=== PATIENT | male | born 1975 | race Caucasian/White ===

== ENCOUNTER 2023-03-26 12:36 | Inpatient (IN) | payer BC ==
[~2023-03-26] VITALS: Ht 177.8 cm; Wt 112.8 kg
[~2023-03-26 12:36] MED LIST: FURO1TAB33 PO; SPIR25TA PO
[2023-03-26 13:21] LABS: Basophils # (auto) 0.1 10 ^3/uL (0-0.2); Basophils % (auto) 0.6 % (0.0-2.0); Eosinophils # (auto) 0.1 10 ^3/uL (0-0.8); Eosinophils % (auto) 0.9 % (0.0-7.0); Hematocrit 43.8 % (41.0-53.0); Hemoglobin 14.3 g/dL (13.5-17.5); Lymphocytes % (auto) 8.9 % (10.0-50.0); Mean Corpuscular Hemoglobin 29.8 pg (28.0-32.0); Mean Corpuscular Hgb Conc. 32.7 g/dL (32.0-36.0); Mean Corpuscular Volume 91.1 fL (80.0-100.0); Monocytes # (auto) 0.5 10 ^3/uL (0-1.3); Monocytes % (auto) 4.6 % (0.0-12.0); Neutrophils # (auto) 9.7 10 ^3/uL (1.6-8.6); Red Blood Cells 4.81 10^6/uL (4.5-5.90); White Blood Cell 11.4 10^3/uL (4.4-10.8)
[2023-03-26 13:28] LABS: Red Cell Distribution Width 22.6 % (11.8-14.3)
[2023-03-26 13:34] LABS: Albumin 3.1 g/dL (3.4-5.0); BUN/Creatinine Ratio 14.8 (10.0-20.0); Calcium 8.8 mg/dL (8.5-10.1); Potassium 3.4 mmol/L (3.5-5.1)
[2023-03-26 13:57] LABS: Bilirubin, Total 0.8 mg/dL (0.2-1.0); Total Protein 7.5 g/dL (6.4-8.2)
[2023-03-26 14:03] LABS: Lipase 3934 U/L (73-393)
[2023-03-26 14:12] LABS: Blood Alcohol < 3.0 mg/dL (<10)
[2023-03-26] MEDS ORDERED: metroNIDAZOLE 500MG/100ML 100 ML IV ONE (14:30)
[2023-03-26] MEDS ORDERED: MORPHINE SULFATE 4 MG/ML SYR/VIAL IV ONE ×2 (14:30→19:45)
[2023-03-26] MEDS ORDERED: cefTRIAXone 1GM/50ML D5W 50 ML IV ONE (14:30)
[2023-03-26] MEDS ORDERED: ONDANSETRON HCL 4 MG/2 ML VIAL IV ONE ×2 (14:30→19:45)
[2023-03-26] MEDS ORDERED: SODIUM CHLORIDE 0.9% 1,000 ML IV ONE (14:30)
[2023-03-26 16:14] LABS: Lactic Acid w/Reflex 2.2 mmol/L (0.4-2.0)
[2023-03-26 18:58] LABS: Urine Bacteria NONE SEEN /hpf (None Seen); Urine Blood Negative /uL (Negative); Urine Mucus FEW (None Seen); Urine Specific Gravity 1.033 (1.001-1.035); Urine WBC 1 /hpf (0 - 3)
[2023-03-26] MEDS ORDERED: PANTOPRAZOLE 40 MG/10 ML VIAL INJ IV ONE (21:00)
[2023-03-26] MEDS ORDERED: ACETAMINOPHEN 325 MG TAB PO PRN (21:00)
[2023-03-26] MEDS ORDERED: HYDROcodone-ACET 5/325MG TAB PO PRN (21:00)
[2023-03-26] MEDS: SODIUM CHLORIDE 0.9% 1,000 ML IV SCH (22:04)
[2023-03-26] MEDS: ONDANSETRON HCL 4 MG/2 ML VIAL IV PRN (22:10)
[2023-03-26] MEDS: MORPHINE SULFATE INJ 2 MG/ml SYRG IV PRN (23:59)
[2023-03-27] MEDS: ONDANSETRON HCL 4 MG/2 ML VIAL IV PRN ×5 (03:31→21:48)
[2023-03-27] MEDS: MORPHINE SULFATE INJ 2 MG/ml SYRG IV PRN ×5 (04:18→21:52)
[2023-03-27] MEDS ORDERED: ATEN25TA PO (04:35)
[2023-03-27] MEDS ORDERED: PANT40TA2 PO (04:37)
[2023-03-27] MEDS ORDERED: DIVA500T3 PO (04:39)
[2023-03-27] MEDS ORDERED: DIVA250T4 PO (04:39)
[2023-03-27] MEDS ORDERED: SERT100T PO (04:40)
[2023-03-27 05:00] VITALS: BP 150/97
[2023-03-27 06:12] LABS: Chloride 102 mmol/L (98-107); Potassium 3.4 mmol/L (3.5-5.1); Sodium 136 mmol/L (136-145)
[2023-03-27 06:21] LABS: Albumin 2.6 g/dL (3.4-5.0); Anion Gap 8 (5-15); BUN/Creatinine Ratio 15.1 (10.0-20.0); Blood Urea Nitrogen 11 mg/dL (7-18); Calcium 8.3 mg/dL (8.5-10.1); Carbon Dioxide 26 mmol/L (21-32); GFR African American 149 mL/min; GFR Non-African American 123 mL/min; Glucose 100 mg/dL (74-106)
[2023-03-27 06:37] LABS: Alanine Aminotransferase 76 U/L (16-61); Alkaline Phosphatase 100 U/L (45-117); Aspartate Aminotransferase 78 U/L (15-37); Bilirubin, Total 0.8 mg/dL (0.2-1.0); Total Protein 6.5 g/dL (6.4-8.2)
[2023-03-27 06:57] LABS: Basophils # (auto) 0 10 ^3/uL (0-0.2); Basophils % (auto) 0.3 % (0.0-2.0); Eosinophils # (auto) 0.1 10 ^3/uL (0-0.8); Hematocrit 40.3 % (41.0-53.0); Hemoglobin 13.1 g/dL (13.5-17.5); Lymphocytes # (auto) 0.7 10 ^3/uL (0.4-5.4); Mean Corpuscular Hemoglobin 30.9 pg (28.0-32.0); Mean Corpuscular Hgb Conc. 32.5 g/dL (32.0-36.0); Mean Corpuscular Volume 95.2 fL (80.0-100.0); Monocytes # (auto) 0.6 10 ^3/uL (0-1.3); Monocytes % (auto) 7.7 % (0.0-12.0); Neutrophils # (auto) 6.2 10 ^3/uL (1.6-8.6); Nucleated Red Blood Cells % 0.1 %; Red Blood Cells 4.24 10^6/uL (4.5-5.90); White Blood Cell 7.7 10^3/uL (4.4-10.8)
[2023-03-27 07:16] LABS: Red Cell Distribution Width 22.2 % (11.8-14.3)
[2023-03-27] MEDS: cefTRIAXone 1GM/50ML D5W 50 ML IV SCH (08:41)
[2023-03-27] MEDS: SODIUM CHLORIDE 0.9% 1,000 ML IV SCH ×2 (08:45→20:32)
[2023-03-27] MEDS: ATENOLOL 50 MG TAB PO SCH (08:46)
[2023-03-27] MEDS: SERTRALINE HCL 50 MG TAB PO SCH (08:46)
[2023-03-27 09:00] VITALS: BP 145/96
[2023-03-27] MEDS ORDERED: PANTOPRAZOLE 40 MG/10 ML VIAL INJ IV SCH (10:00)
[2023-03-27 11:43] LABS: Amylase 243 U/L (25-115)
[2023-03-27 12:35] LABS: Lipase 3047 U/L (73-393)
[2023-03-27 13:00] VITALS: BP 146/95
[2023-03-27 17:00] VITALS: BP 133/87
[2023-03-27 20:00] VITALS: BP 136/67
[2023-03-27 23:30] VITALS: BP 144/75
[2023-03-28] MEDS: ONDANSETRON HCL 4 MG/2 ML VIAL IV PRN ×4 (02:04→16:44)
[2023-03-28] MEDS: MORPHINE SULFATE INJ 2 MG/ml SYRG IV PRN ×4 (02:17→16:45)
[2023-03-28 04:27] VITALS: BP 106/67
[2023-03-28 06:49] LABS: Basophils # (auto) 0 10 ^3/uL (0-0.2); Basophils % (auto) 0.4 % (0.0-2.0); Eosinophils # (auto) 0.3 10 ^3/uL (0-0.8); Eosinophils % (auto) 4.3 % (0.0-7.0); Hematocrit 34.1 % (41.0-53.0); Hemoglobin 11.3 g/dL (13.5-17.5); Lymphocytes # (auto) 0.7 10 ^3/uL (0.4-5.4); Mean Corpuscular Hemoglobin 30.6 pg (28.0-32.0); Mean Corpuscular Hgb Conc. 33.3 g/dL (32.0-36.0); Mean Corpuscular Volume 91.8 fL (80.0-100.0); Monocytes # (auto) 0.4 10 ^3/uL (0-1.3); Monocytes % (auto) 5.7 % (0.0-12.0); Neutrophils # (auto) 4.8 10 ^3/uL (1.6-8.6); Neutrophils % (auto) 77.6 % (37.0-80.0); Nucleated Red Blood Cells % 0.1 %; Red Blood Cells 3.71 10^6/uL (4.5-5.90); Red Cell Distribution Width 21.7 % (11.8-14.3); White Blood Cell 6.2 10^3/uL (4.4-10.8)
[2023-03-28 07:13] LABS: Albumin 2.3 g/dL (3.4-5.0); Calcium 8.4 mg/dL (8.5-10.1); Potassium 3.4 mmol/L (3.5-5.1)
[2023-03-28 07:19] LABS: BUN/Creatinine Ratio 11.6 (10.0-20.0); Bilirubin, Total 0.9 mg/dL (0.2-1.0); Total Protein 6.1 g/dL (6.4-8.2)
[2023-03-28] MEDS: SODIUM CHLORIDE 0.9% 1,000 ML IV SCH (08:34)
[2023-03-28 08:40] VITALS: BP 120/83
[2023-03-28] MEDS: cefTRIAXone 1GM/50ML D5W 50 ML IV SCH (09:19)
[2023-03-28] MEDS: ATENOLOL 50 MG TAB PO SCH (10:23)
[2023-03-28] MEDS: SERTRALINE HCL 50 MG TAB PO SCH (10:23)
[2023-03-28 13:00] VITALS: BP 109/78
[2023-03-28 15:26] VITALS: BP 120/83
[2023-03-28 17:14] VITALS: BP 118/86
== END 2023-03-28 19:05 | disposition home or self-care (01) | DRG 440 ==
LOC: ER 12:36 → OVERFLOW 20:53 → WEST WING 03-27 00:58
PROVIDERS: ADMIT Nurse Practitioner; ATTEND Internal Medicine
DX: K85.20 Alcohol induced acute pancreatitis without necrosis or infection (principal); K86.1 Other chronic pancreatitis; K76.0 Fatty (change of) liver, not elsewhere classified; I10 Essential (primary) hypertension; K80.20 Calculus of gallbladder without cholecystitis without obstruction; F10.10 Alcohol abuse, uncomplicated; F32.A Depression, unspecified
CPT/HCPCS: 36415; 74176; 76705; 78226; 80053; 80320; 81001; 82150; 83605; 83690; 85025; 87040; 96365; 96367; 96375; 96376; C9113; G0378; J0696; J2405; J3490

== ENCOUNTER 2023-03-30 15:11 | Inpatient (IN) | payer BC ==
[~2023-03-30] VITALS: Ht 177.8 cm; Wt 115.0 kg
[~2023-03-30 15:11] MED LIST changes: +ATEN25TA PO; +DIVA250T4 PO; +DIVA500T3 PO; +PANT40TA2 PO; +SERT100T PO
[2023-03-30 15:41] LABS: Basophils # (auto) 0.1 10 ^3/uL (0-0.2); Eosinophils # (auto) 0.2 10 ^3/uL (0-0.8); Eosinophils % (auto) 2.8 % (0.0-7.0); Hematocrit 39.7 % (41.0-53.0); Hemoglobin 13.2 g/dL (13.5-17.5); Lymphocytes # (auto) 0.9 10 ^3/uL (0.4-5.4); Lymphocytes % (auto) 11.5 % (10.0-50.0); Mean Corpuscular Hemoglobin 30.7 pg (28.0-32.0); Mean Corpuscular Hgb Conc. 33.2 g/dL (32.0-36.0); Mean Corpuscular Volume 92.5 fL (80.0-100.0); Monocytes # (auto) 0.6 10 ^3/uL (0-1.3); Monocytes % (auto) 7.5 % (0.0-12.0); Neutrophils # (auto) 6.2 10 ^3/uL (1.6-8.6); Neutrophils % (auto) 77.2 % (37.0-80.0); Nucleated Red Blood Cells % 0.1 %; Red Blood Cells 4.29 10^6/uL (4.5-5.90); Red Cell Distribution Width 21.5 % (11.8-14.3)
[2023-03-30 16:02] LABS: Albumin 2.9 g/dL (3.4-5.0); Potassium 3.2 mmol/L (3.5-5.1)
[2023-03-30 16:16] LABS: BUN/Creatinine Ratio 15.4 (10.0-20.0); Bilirubin, Total 0.6 mg/dL (0.2-1.0); Total Protein 7.7 g/dL (6.4-8.2)
[2023-03-30] MEDS ORDERED: TEMAZEPAM 15 MG CAP PO PRN (17:45)
[2023-03-30] MEDS ORDERED: DOCUSATE SOD 100 MG CAP PO PRN (17:45)
[2023-03-30] MEDS ORDERED: ACETAMINOPHEN 325 MG TAB PO PRN (17:45)
[2023-03-30] MEDS ORDERED: HYDROcodone-ACET 5/325MG TAB PO PRN (17:45)
[2023-03-30] MEDS: SODIUM CHLORIDE 0.9% 1,000 ML IV SCH (20:20)
[2023-03-31] MEDS: MORPHINE SULFATE INJ 2 MG/ml SYRG IV PRN ×6 (00:59→22:39)
[2023-03-31] MEDS: SODIUM CHLORIDE 0.9% 1,000 ML IV SCH ×3 (02:05→18:19)
[2023-03-31] MEDS: ONDANSETRON HCL 4 MG/2 ML VIAL IV PRN ×4 (05:55→18:19)
[2023-03-31 07:04] LABS: Albumin 2.4 g/dL (3.4-5.0)
[2023-03-31 07:09] LABS: BUN/Creatinine Ratio 16.7 (10.0-20.0); Bilirubin, Total 0.6 mg/dL (0.2-1.0); Total Protein 5.8 g/dL (6.4-8.2)
[2023-03-31 09:10] VITALS: BP 137/85
[2023-03-31] MEDS: ENOXAPARIN SOD 40 MG/0.4 ML SYRINGE SC SCH (10:09)
[2023-03-31 13:00] VITALS: BP 131/88
[2023-03-31 13:49] LABS: Amylase 73 U/L (25-115); Lipase 971 U/L (73-393)
[2023-03-31] MEDS ORDERED: POTASSIUM CHL 20 Meq TABLET PO ONE (15:45)
[2023-03-31 17:00] VITALS: BP 133/88
[2023-03-31] MEDS ORDERED: HYDR1TAB97 PO (17:41)
[2023-03-31 22:00] VITALS: BP 134/90
[2023-04-01] MEDS: ONDANSETRON HCL 4 MG/2 ML VIAL IV PRN ×4 (03:54→17:23)
[2023-04-01] MEDS: MORPHINE SULFATE INJ 2 MG/ml SYRG IV PRN ×5 (03:55→21:56)
[2023-04-01] MEDS: SODIUM CHLORIDE 0.9% 1,000 ML IV SCH ×4 (04:00→20:58)
[2023-04-01 05:00] VITALS: BP 140/89
[2023-04-01 09:00] VITALS: BP 129/75
[2023-04-01] MEDS: ENOXAPARIN SOD 40 MG/0.4 ML SYRINGE SC SCH (09:05)
[2023-04-01 13:00] VITALS: BP 109/64
[2023-04-01 17:00] VITALS: BP 130/76
[2023-04-01 22:00] VITALS: BP 137/88
[2023-04-02] MEDS: ONDANSETRON HCL 4 MG/2 ML VIAL IV PRN (02:13)
[2023-04-02] MEDS: MORPHINE SULFATE INJ 2 MG/ml SYRG IV PRN ×2 (02:14→06:34)
[2023-04-02 05:00] VITALS: BP 128/90
[2023-04-02] MEDS: SODIUM CHLORIDE 0.9% 1,000 ML IV SCH ×2 (06:39→12:25)
[2023-04-02 09:00] VITALS: BP 138/85
[2023-04-02] MEDS: ENOXAPARIN SOD 40 MG/0.4 ML SYRINGE SC SCH (09:43)
[2023-04-02 13:00] VITALS: BP 110/69
[2023-04-02] MEDS ORDERED: PANC3600 OR (15:40)
[2023-04-02 16:04] VITALS: BP 110/69
== END 2023-04-02 17:04 | disposition home or self-care (01) | DRG 439 ==
LOC: ER 15:11 → OVERFLOW 17:45 → WEST WING 03-31 08:45
PROVIDERS: ADMIT Internal Medicine; ATTEND Internal Medicine
DX: K85.90 Acute pancreatitis without necrosis or infection, unspecified (principal); K86.3 Pseudocyst of pancreas; I10 Essential (primary) hypertension; F32.A Depression, unspecified; F10.20 Alcohol dependence, uncomplicated
CPT/HCPCS: 36415; 74176; 80053; 80320; 82150; 83690; 85025; 87081; 93005; G0378; J2405

== ENCOUNTER 2024-01-11 10:36 | Emergency (ER) | payer BC, OTHER ==
[~2024-01-11] VITALS: Ht 177.8 cm; Wt 105.7 kg
[~2024-01-11 10:36] MED LIST changes: +DIVA-139 PO; +DIVA-91 PO; -DIVA250T4 PO; -DIVA500T3 PO; +HYDR1TAB97 PO; +PANC3600 OR
[2024-01-11 11:25] LABS: Basophils # (auto) 0 10 ^3/uL (0-0.2); Basophils % (auto) 0.5 % (0.0-2.0); Eosinophils # (auto) 0.2 10 ^3/uL (0-0.8); Eosinophils % (auto) 3.2 % (0.0-7.0); Hematocrit 37.8 % (41.0-53.0); Hemoglobin 12.2 g/dL (13.5-17.5); Mean Corpuscular Hemoglobin 28.6 pg (28.0-32.0); Mean Corpuscular Hgb Conc. 32.3 g/dL (32.0-36.0); Mean Corpuscular Volume 88.6 fL (80.0-100.0); Monocytes # (auto) 0.9 10 ^3/uL (0-1.3); Monocytes % (auto) 12.6 % (0.0-12.0); Neutrophils # (auto) 4.8 10 ^3/uL (1.6-8.6); Neutrophils % (auto) 69.7 % (37.0-80.0); Red Blood Cells 4.26 10^6/uL (4.5-5.90); Red Cell Distribution Width 17.4 % (11.8-14.3); White Blood Cell 6.8 10^3/uL (4.4-10.8)
[2024-01-11 11:43] LABS: Alanine Aminotransferase 39 U/L (7-40); Albumin 3.5 g/dL (3.2-4.8); Alkaline Phosphatase 128 U/L (46-116); Anion Gap 11 (5-15); Aspartate Aminotransferase 76 U/L (13-40); BUN/Creatinine Ratio 9.7 (10.0-20.0); Bilirubin, Total 0.9 mg/dL (0.2-1.0); Blood Alcohol < 3.0 mg/dL (<10); Blood Urea Nitrogen 6 mg/dL (9-23); Calcium 8.8 mg/dL (8.5-10.1); Carbon Dioxide 24 mmol/L (20-30); Chloride 104 mmol/L (98-107); Glucose 97 mg/dL (74-106); Potassium 3.7 mmol/L (3.5-5.1); Sodium 139 mmol/L (136-145); Total Protein 6.7 g/dL (5.7-8.2)
[2024-01-11 13:24] LABS: Magnesium 1.5 mg/dL (1.6-2.6)
[2024-01-11 15:21] LABS: Urine Bacteria None Seen /hpf (None Seen)
[2024-01-11 15:34] LABS: Urine Blood Negative /uL (Negative); Urine Clarity Clear (Clear); Urine Color Yellow (Yellow); Urine Mucus FEW (None Seen); Urine Protein, UAD 1+ (Negative); Urine Specific Gravity 1.034 (1.001-1.035); Urine Urobilinogen 8 mg/dL (Negative); Urine WBC <1 /hpf (0 - 3); Urine pH 8.5 (5.0-9.0)
[2024-01-11 15:43] LABS: Amphetamine Screen, Urine Neg (NEGATIVE); Barbiturate Scree,Urine Neg (NEGATIVE); Benzodiazephine Screen, Urine Pos (NEGATIVE); Cannabinoid Screen, Urine Neg (NEGATIVE); Cocaine Screen, Urine Neg (NEGATIVE); Opiate Scree,Urine Neg (NEGATIVE); Phencyclidine Screen, Urine Neg (NEGATIVE)
[2024-01-11 17:15] VITALS: PULSE 103; RESP 13; O2SAT 92
[2024-01-11] MEDS: ONDANSETRON HCL 4 MG/2 ML VIAL IV ONE ×2 (18:56→23:26)
[2024-01-11] MEDS: SODIUM CHLORIDE 0.9% 500 ML IVB ONE (18:56)
[2024-01-11] MEDS: HYDROmorphone HCL 2 MG/ML VL/or syr IV ONE (18:56)
[2024-01-11 19:20] VITALS: PULSE 103; RESP 21; O2SAT 92
[2024-01-11] MEDS: MAGNESIUM SULFATE 1GM/100ML 100 ML IV SCH (19:50)
[2024-01-11] MEDS: SODIUM CHLORIDE 0.9% 1,000 ML IV ONE (20:36)
[2024-01-11 22:00] VITALS: TEMP 99.1
[2024-01-11] MEDS: MORPHINE SULFATE INJ 2 MG/ml SYRG IV ONE (23:25)
[2024-01-12] MEDS: ONDANSETRON HCL 4 MG/2 ML VIAL IM ONE (04:10)
[2024-01-12] MEDS: ONDANSETRON HCL 4 MG/2 ML VIAL ONE (04:11)
[2024-01-12] MEDS: MORPHINE SULFATE 4 MG/ML SYR/VIAL ONE (04:11)
[2024-01-12] MEDS: MORPHINE SULFATE 4 MG/ML SYR/VIAL IV ONE (04:11)
[2024-01-12 04:17] VITALS: BP 120/73; PULSE 96; RESP 15; O2SAT 96
== END 2024-01-12 04:17 | disposition short-term general hospital (02) ==
LOC: ER 10:36
DX: K85.90 Acute pancreatitis without necrosis or infection, unspecified (principal); I48.91 Unspecified atrial fibrillation; I10 Essential (primary) hypertension; Z79.899 Other long term (current) drug therapy
CPT/HCPCS: 36415; 71046; 80053; 80307; 80320; 81001; 83690; 83735; 84484; 85025; 93005; 96361; 96365; 96366; 96372; 96375; 96376; 99285; J1170; J2270; J2405; J3475; J7030; J7040

== ENCOUNTER 2024-03-04 01:55 | Emergency (ER) | payer OTHER ==
[~2024-03-04] VITALS: Ht 177.8 cm; Wt 101.2 kg
[2024-03-04 03:56] LABS: Urine Bacteria None Seen /hpf (None Seen)
[2024-03-04 04:05] LABS: Urine Blood Negative /uL (Negative); Urine Clarity Clear (Clear); Urine Color Yellow (Yellow); Urine Mucus FEW (None Seen); Urine Protein, UAD 1+ (Negative); Urine Specific Gravity 1.034 (1.001-1.035); Urine Urobilinogen 12 mg/dL (Negative); Urine WBC 2 /hpf (0 - 3); Urine pH 6.5 (5.0-9.0)
[2024-03-04 05:38] VITALS: PULSE 56; RESP 16; O2SAT 97
[2024-03-04 06:21] LABS: Eosinophils # (auto) 0.1 10 ^3/uL (0-0.8); Hemoglobin 12.2 g/dL (13.5-17.5); Lymphocytes # (auto) 1.1 10 ^3/uL (0.4-5.4); Mean Corpuscular Hemoglobin 26.6 pg (28.0-32.0); Mean Corpuscular Hgb Conc. 32.3 g/dL (32.0-36.0); Monocytes # (auto) 0.6 10 ^3/uL (0-1.3); Nucleated Red Blood Cells % 0.1 %
[2024-03-04 06:23] LABS: Basophils # (auto) 0.1 10 ^3/uL (0-0.2); Basophils % (auto) 0.7 % (0.0-2.0); Eosinophils % (auto) 1.6 % (0.0-7.0); Hematocrit 37.6 % (41.0-53.0); Lymphocytes % (auto) 15.5 % (10.0-50.0); Mean Corpuscular Volume 82.3 fL (80.0-100.0); Monocytes % (auto) 8.2 % (0.0-12.0); Neutrophils # (auto) 5.5 10 ^3/uL (1.6-8.6); Red Blood Cells 4.56 10^6/uL (4.5-5.90); White Blood Cell 7.4 10^3/uL (4.4-10.8)
[2024-03-04 06:28] LABS: Red Cell Distribution Width 20.3 % (11.8-14.3)
[2024-03-04 06:40] LABS: Alanine Aminotransferase 85 U/L (7-40); Albumin 3.3 g/dL (3.2-4.8); Alkaline Phosphatase 138 U/L (46-116); Anion Gap 9 (5-15); Aspartate Aminotransferase 162 U/L (13-40); BUN/Creatinine Ratio 12.3 (10.0-20.0); Blood Urea Nitrogen 9 mg/dL (9-23); Calcium 9.2 mg/dL (8.7-10.4); Carbon Dioxide 31 mmol/L (20-30); Chloride 103 mmol/L (98-107); Glucose 96 mg/dL (74-106); Lipase 229 U/L (12-53); Potassium 3.7 mmol/L (3.5-5.1); Sodium 143 mmol/L (136-145); Total Protein 6.9 g/dL (5.7-8.2)
[2024-03-04 06:41] LABS: Bilirubin, Total 1.5 mg/dL (0.2-1.0)
[2024-03-04] MEDS: SODIUM CHLORIDE 0.9% 500 ML IVB ONE (06:56)
[2024-03-04] MEDS: PANTOPRAZOLE 40 MG/10 ML VIAL INJ IV ONE (07:02)
[2024-03-04] MEDS: HYDROmorphone HCL 2 MG/ML VL/or syr IV ONE ×2 (07:03→11:04)
[2024-03-04] MEDS: ONDANSETRON HCL 4 MG/2 ML VIAL IV ONE ×2 (07:03→11:15)
[2024-03-04 07:50] VITALS: PULSE 79; RESP 12; O2SAT 99
[2024-03-04 11:50] VITALS: BP 110/71; PULSE 67; RESP 14; TEMP 97.8; O2SAT 98
== END 2024-03-04 12:07 | disposition short-term general hospital (02) ==
LOC: ER 01:55
DX: K85.20 Alcohol induced acute pancreatitis without necrosis or infection (principal); R10.31 Right lower quadrant pain; R10.11 Right upper quadrant pain; F32.9 Major depressive disorder, single episode, unspecified; I10 Essential (primary) hypertension; Z79.899 Other long term (current) drug therapy; Z98.890 Other specified postprocedural states
CPT/HCPCS: 36415; 74176; 80053; 81001; 83690; 84484; 85025; 96361; 96374; 96375; 96376; 99285; C9113; J1170; J2405; J7040

== ENCOUNTER 2024-05-03 17:40 | Emergency (ER) | payer OTHER, MEDICAID ==
[~2024-05-03] VITALS: Ht 172.7 cm; Wt 99.0 kg
[2024-05-03] MEDS: ONDANSETRON HCL 4 MG/2 ML VIAL IV ONE (19:06)
[2024-05-03] MEDS: MORPHINE SULFATE 4 MG/ML SYR/VIAL IV ONE (19:06)
[2024-05-03 19:09] LABS: Basophils # (auto) 0 10 ^3/uL (0-0.2); Basophils % (auto) 0.4 % (0.0-2.0); Eosinophils # (auto) 0.1 10 ^3/uL (0-0.8); Eosinophils % (auto) 2.5 % (0.0-7.0); Hematocrit 31.6 % (41.0-53.0); Hemoglobin 10.2 g/dL (13.5-17.5); Lymphocytes # (auto) 0.8 10 ^3/uL (0.4-5.4); Lymphocytes % (auto) 19.3 % (10.0-50.0); Mean Corpuscular Hemoglobin 27.1 pg (28.0-32.0); Mean Corpuscular Hgb Conc. 32.2 g/dL (32.0-36.0); Mean Corpuscular Volume 84.1 fL (80.0-100.0); Monocytes # (auto) 0.5 10 ^3/uL (0-1.3); Neutrophils # (auto) 2.8 10 ^3/uL (1.6-8.6); Neutrophils % (auto) 65.8 % (37.0-80.0); Red Blood Cells 3.75 10^6/uL (4.5-5.90); Red Cell Distribution Width 19.8 % (11.8-14.3); White Blood Cell 4.3 10^3/uL (4.4-10.8)
[2024-05-03] MEDS: SODIUM CHLORIDE 0.9% 1,000 ML IV ONE (19:15)
[2024-05-03 19:31] LABS: Alanine Aminotransferase 31 U/L (7-40); Alkaline Phosphatase 109 U/L (46-116); Anion Gap 5 (5-15); Aspartate Aminotransferase 61 U/L (13-40); Carbon Dioxide 29 mmol/L (20-30); Chloride 107 mmol/L (98-107); Glucose 88 mg/dL (74-106); Potassium 3.7 mmol/L (3.5-5.1); Sodium 141 mmol/L (136-145); Total Protein 6.8 g/dL (5.7-8.2)
[2024-05-03 19:33] LABS: BUN/Creatinine Ratio 8.2 (10.0-20.0); Blood Urea Nitrogen < 5 mg/dL (9-23)
[2024-05-03 19:46] LABS: Lipase 51 U/L (12-53)
[2024-05-03] MEDS: IOHEXOL 300 MG/ML 100ML BOTTLE IJ ONE (20:24)
[2024-05-03 22:41] LABS: Urine Bacteria None Seen /hpf (None Seen)
[2024-05-03 22:52] LABS: Urine Blood Negative /uL (Negative); Urine Clarity Turbid (Clear); Urine Color Yellow (Yellow); Urine Mucus MANY (None Seen); Urine Protein, UAD 1+ (Negative); Urine Specific Gravity 1.022 (1.001-1.035); Urine Urobilinogen OVER mg/dL (Negative); Urine WBC 2 /hpf (0 - 3); Urine pH 7.5 (5.0-9.0)
[2024-05-04] MEDS: PANTOPRAZOLE 40 MG/10 ML VIAL INJ IV ONE (00:54)
[2024-05-04] MEDS: MORPHINE SULFATE 4 MG/ML SYR/VIAL IV ONE (00:55)
[2024-05-04 05:04] VITALS: BP 105/52; PULSE 76; RESP 20; TEMP 98.1; O2SAT 100
== END 2024-05-04 05:13 | disposition short-term general hospital (02) ==
LOC: ER 17:40
DX: K85.90 Acute pancreatitis without necrosis or infection, unspecified (principal); R10.84 Generalized abdominal pain; I10 Essential (primary) hypertension; Z79.899 Other long term (current) drug therapy
CPT/HCPCS: 36415; 74177; 80053; 80320; 81001; 83690; 85025; 96361; 96374; 96375; 96376; 99285; J2270; J2405; J2470; J7030; Q9967